=== PATIENT | female | born 1940 ===

== ENCOUNTER 2018-04-30 10:13 | Emergency (ER) | payer MEDICARE, OTHER ==
--- NOTE | 2018-04-30 10:32 | ED PDOC ---
Arrival/HPI - General Time Seen by Provider: 04/30/18 10:15 Historian: Patient - History of Present Illness Narrative History of Present Illness (Text): 04/30/18 11:01 77 year old female, whose past medical history includes hypertension and right knee replacement, who presents to the emergency department complaining of lower back pain s/p fall earlier this morning, at 6am. Patient states she was walking down the stairs, it was dark, she missed a step, and fell down approximately 10 steps. She reports she did hit her head, but is only complaining of back pain. Patient denies bowel or bladder dysfunction, fevers, chills, headache, dizziness, chest pain, shortness of breath, dyspnea on exertion, cough, abdominal pain, nausea, vomiting, diarrhea, neck pain, or any other complaint. Time/Duration: 4-6 hours Symptom Onset: Gradual Symptom Course: Unchanged Activities at Onset: Light Context: Home Past Medical History - Provider Review Nursing Documentation Reviewed: Yes Family/Social History - Physician Review Nursing Documentation Reviewed: Yes Family/Social History: No Known Family HX Allergies/Home Meds Allergies/Adverse Reactions: Allergies No Known Allergies Allergy (Verified 04/30/18 10:33) Home Medications: Home Meds Medication Instructions Recorded Confirmed Atorvastatin [Lipitor] 20 mg PO DAILY 04/30/18 04/30/18 RX: Meclizine [Antivert] 12.5 mg PO PRN 04/30/18 04/30/18 amLODIPine [Norvasc] 5 mg PO DAILY 04/30/18 04/30/18 Review of Systems - Physician Review All systems were reviewed & negative as marked: Yes - Review of Systems Constitutional: absent: Fevers Respiratory: absent: SOB, Cough Cardiovascular: absent: Chest Pain Gastrointestinal: absent: Abdominal Pain, Diarrhea, Nausea, Vomiting Musculoskeletal: Back Pain. absent: Neck Pain Skin: absent: Rash Neurological: absent: Headache, Dizziness Physical Exam Vital Signs Reviewed: Yes Temperature: Afebrile Blood Pressure: Normal Pulse: Tachycardic Respiratory Rate: Normal Appearance: Positive for: Well-Appearing, Non-Toxic, Comfortable Pain Distress: None Mental Status: Positive for: Alert and Oriented X 3 - Systems Exam Head: Present: Atraumatic, Normocephalic Pupils: Present: PERRL Extroacular Muscles: Present: EOMI Conjunctiva: Present: Normal Mouth: Present: Moist Mucous Membranes Neck: Present: Normal Range of Motion Respiratory/Chest: Present: Clear to Auscultation, Good Air Exchange. No: Respiratory Distress, Accessory Muscle Use Cardiovascular: Present: Regular Rate and Rhythm, Murmurs (systolic murmur) Abdomen: No: Tenderness, Distention, Peritoneal Signs Back: Present: Paraspinal Tenderness (point tenderness to the paraspinal musculature in the sacral region ), Other (no bony tenderness to the thoracic or lumbar region) Upper Extremity: Present: Normal Inspection. No: Cyanosis, Edema Lower Extremity: Present: Normal Inspection. No: Edema Neurological: Present: GCS=15, CN II-XII Intact, Speech Normal, Motor Func Grossly Intact, Gait Normal Skin: Present: Warm, Dry, Normal Color. No: Rashes Psychiatric: Present: Alert, Oriented x 3, Normal Insight, Normal Concentration Medical Decision Making ED Course and Treatment: 04/30/18 10:31 Impression: 77 year old female who presents to the emergency department complaining of lower back pain. Plan: -- Head CT -- Toradol -- LS X-ray -- Reassess and disposition Prior Visits: Notes and results from previous visits were reviewed. Progress Notes: 04/30/18 13:38 On reassessment patient states she feels better after medication. 04/30/18 13:42 discussed LS X-ray with radiologist, there may be a mild compression fracture in L1, however nothing acute. Patient is stable and ready for discharge. - RAD Interpretation Narrative RAD Interpretations (Text): 04/30/18 12:[address] reviewed by radiologist, shows: IMPRESSION: No acute intracranial abnormalities. No significant findings to account for the clinical presentation. 04/30/18 13:51 Lumbar spine X-ray reviewed by radiologist, shows: IMPRESSION: There is a mild compression deformity of L1. This is probably chronic. Age is uncertain. Pump Tester: Radiologist - Scribe Statement The provider has reviewed the documentation as recorded by the Janna Li Provider Scribe Attestation: All medical record entries made by the Scribe were at my direction and personally dictated by me. I have reviewed the chart and agree that the record accurately reflects my personal performance of the history, physical exam, medical decision making, and the department course for this patient. I have also personally directed, reviewed, and agree with the discharge instructions and disposition. Disposition/Present on Arrival - Present on Arrival Any Indicators Present on Arrival: No History of DVT/PE: No History of Uncontrolled Diabetes: No Urinary Catheter: No History of Decub. Ulcer: No - Disposition Have Diagnosis and Disposition been Completed?: Yes Diagnosis: Fall (on) (from) other stairs and steps, initial encounter, Low back strain, Compression fracture of L1 lumbar vertebra Disposition: HOME/ ROUTINE Disposition Time: 13:48 Patient Plan: Discharge Condition: IMPROVED Discharge Instructions (ExitCare): Lumbar Muscle Strain (DC), Vertebral Compression Fracture (DC) Print Language: SLOVENIAN Additional Instructions: MOISES CAMARA, thank you for letting us take care of you today. Your provider was Bhakti eMjia MD and you were treated for fall ( back pain ). The emergency medical care you received today was directed at your acute symptoms. If you were prescribed any medication, please fill it and take as directed. It may take several days for your symptoms to resolve. Return to the Emergency Department if your symptoms worsen, do not improve, or if you have any other problems. Please contact your doctor for a follow up appointment in 1-2 days. Bring any paperwork you were given at discharge with you along with any medications you are taking to your follow up visit. Our treatment cannot replace ongoing medical care by a primary care provider outside of the emergency department. Thank you for allowing the [facility] team to be part of your care today. Referrals: Jesse Benjamin MD [Primary Care Provider] - Follow up with primary Forms: [employer] (Latvian)
[2018-04-30 11:15] VITALS: RESP 18
[2018-04-30 12:05] VITALS: PULSE 70; TEMP 98.5
--- NOTE | 2018-04-30 12:06 | CT ---
Date of service: 04/30/2018 PROCEDURE: CT HEAD WITHOUT CONTRAST. HISTORY: head injury COMPARISON: None available. TECHNIQUE: Axial computed tomography images were obtained through the head/brain without intravenous contrast. Supplemental Coronal and Sagittal projections created and reviewed. Radiation dose: Total exam DLP = 902.38 mGy-cm. This CT exam was performed using one or more of the following dose reduction techniques: Automated exposure control, adjustment of the mA and/or kV according to patient size, and/or use of iterative reconstruction technique. FINDINGS: HEMORRHAGE: No intracranial hemorrhage. BRAIN: No mass effect or edema. No atrophy or chronic microvascular ischemic changes.Incidental finding(s): Physiologic and symmetrical basal ganglia calcifications VENTRICLES: Unremarkable. No hydrocephalus. CALVARIUM: Unremarkable. PARANASAL SINUSES: Unremarkable as visualized. No significant inflammatory changes. MASTOID AIR CELLS: Unremarkable as visualized. No inflammatory changes. OTHER FINDINGS: None. IMPRESSION: No acute intracranial abnormalities. No significant findings to account for the clinical presentation.
[2018-04-30 12:09] VITALS: BP 155/61; O2SAT 95
--- NOTE | 2018-04-30 13:45 | RAD ---
Date of service: 04/30/2018 PROCEDURE: Radiographs of the Lumbar Spine. HISTORY: fall/pain COMPARISON: No prior. FINDINGS: BONES: There is a mild compression deformity of L1. This is probably chronic. Age is uncertain. DISC SPACES: Unremarkable. OTHER FINDINGS: Calcified aorta IMPRESSION: There is a mild compression deformity of L1. This is probably chronic. Age is uncertain.
== END 2018-04-30 13:55 | disposition home or self-care (01) ==
LOC: ED 10:13
DX: S39.012A Strain of muscle, fascia and tendon of lower back, initial encounter (principal); M48.56XA Collapsed vertebra, not elsewhere classified, lumbar region, initial encounter for fracture; W10.9XXA Fall (on) (from) unspecified stairs and steps, initial encounter; I10 Essential (primary) hypertension
CPT/HCPCS: 70450; 72100; 96372; 99284; J1885